=== PATIENT | female | born 1990 | race Caucasian/White ===

== ENCOUNTER 2017-09-16 09:44 | Emergency (ER) | payer OTHER ==
--- OUTSIDE RECORDS SUMMARY | 2017-09-16 09:55 | XMS REPORT ---
:1990 External Reference #:[id number] Author Organization [facility] Address [address] [place] [address]/[address] [place] [address] Phone [phone] Care Team Providers Name Role Phone Lavern Pollock MD Care Team Information Security Ambassador Unavailable Payers Type Date Identification Numbers Payment Provider Subscriber Commercial Policy Number: [id number] [facility] Vy Miller PayID: [id number] [address] [place] [address] [facility] Policy Number: [id number] [employer] Vy Miller PayID: [id number] [address] [place] [address] Problems Description No Information Family History Date Family Member(s) Problem(s) Comments General No Current Problems Father 52 Father No Current Problems Mother 50 Mother No Current Problems Children 1 First Son 6 First Son No Current Problems Siblings 2 Social History Type Date Description Comments Work Status Full-Time Employment ETOH Use Rarely consumes alcohol Smoking Patient has never smoked Recreational Drug Use Denies Drug Use Daily Caffeine Consumes on average 1 cup of regular coffee per day Allergies, Adverse Reactions, Alerts Date Description Reaction Status Severity Comments 07/02/2017 ALL Sulfa Drugs active Medications Medication Date Status Form Strength Qnty SIG Indications Ordering Provider Phentermine Active Capsules 37.5mg 30caps 1 by mouth E66.09 Phill, HCL 018 every in Ahmad M., the M.D. morning Amoxicillin Hx Tablets 500mg 40tabs 2 by mouth H54.42A4 Phill, 018 - twice a Ahmad M., day Adelso 018 Vital Signs Date Vital Result Comment 09/02/2017 BP Systolic 110 mmHg BP Diastolic 68 mmHg Height 68 inches 5'8" Weight 169.31 lb BMI (Body Mass Index) 25.7 kg/m2 Heart Rate 78 /min Respiratory Rate 18 /min 07/30/2017 BP Systolic 110 mmHg BP Diastolic 60 mmHg Height 68 inches 5'8" Weight 181.00 lb BMI (Body Mass Index) 27.5 kg/m2 Heart Rate 89 /min Respiratory Rate 18 /min 07/02/2017 BP Systolic 124 mmHg BP Diastolic 70 mmHg Height 68 inches 5'8" Weight 192.00 lb BMI (Body Mass Index) 29.2 kg/m2 Heart Rate 70 /min Respiratory Rate 16 /min Results Test Date Test Result H/L Range Note CBC Auto Diff 07/02/2017 White Blood Count 6.1 10^3/uL 3.5-10.8 Red Blood Count 4.71 10^6/uL 4.0-5.4 Hemoglobin 13.4 g/dL 12.0-16.0 Hematocrit 40 % 35-47 Mean Corpuscular Volume 84 fL 80-97 Mean Corpuscular Hemoglobin 29 pg 27-31 Mean Corpuscular HGB Conc 34 g/dL 31-36 Red Cell Distribution Width 14 % 10.5-15 Platelet Count 205 10^3/uL 150-450 Mean Platelet Volume 9 um3 7.4-10.4 Abs Neutrophils 3.3 10^3/uL 1.5-7.7 Abs Lymphocytes 2.0 10^3/uL 1.0-4.8 Abs Monocytes 0.7 10^3/uL 0-0.8 Abs Eosinophils 0.1 10^3/uL 0-0.6 Abs Basophils 0 10^3/uL 0-0.2 Abs Nucleated RBC 0 10^3/uL Granulocyte % 54.3 % 38-83 Lymphocyte % 32.9 % 25-47 Monocyte % 11.4 % High 1-9 Eosinophil % 0.9 % 0-6 Basophil % 0.5 % 0-2 Nucleated Red Blood Cells % 0.1 Comp Metabolic Panel 07/02/2017 Sodium 137 mmol/L 133-145 Potassium 4.0 mmol/L 3.5-5.0 Chloride 106 mmol/L 101-111 Co2 Carbon Dioxide 26 mmol/L 22-32 Anion Gap 5 mmol/L 2-11 Glucose 93 mg/dL 70-100 Blood Urea Nitrogen 15 mg/dL 6-24 Creatinine 0.68 mg/dL 0.51-0.95 BUN/Creatinine Ratio 22.1 High 8-20 Calcium 9.1 mg/dL 8.6-10.3 Total Protein 6.8 g/dL 6.4-8.9 Albumin 3.9 g/dL 3.2-5.2 Globulin 2.9 g/dL 2-4 Albumin/Globulin Ratio 1.3 1-3 Total Bilirubin 1.20 mg/dL High 0.2-1.0 Alkaline Phosphatase 42 U/L 34-104 Alt 23 U/L 7-52 Ast 15 U/L 13-39 Egfr Non- 106.3 >60 Egfr 136.7 >60 1 Laboratory test finding 07/02/2017 TSH (Thyroid Stim Horm) 1.64 mcIU/mL 0.34-5.60 2 1 Because ethnic data is not always readily available, this report includes an eGFR for both -Americans and non- Americans. The National Kidney Disease Education Program (NKDEP) does not endorse the use of the MDRD equation for patients that are not between the ages of 18 and 70, are , have extremes of body size, muscle mass, or nutritional status, or are non- or non-. According to the National Kidney Foundation, irrespective of diagnosis, the stage of the disease is based on the level of kidney function: Stage Description GFR(mL/min/1.73 m(2)) 1 Kidney damage with normal or decreased GFR 90 2 Kidney damage with mild decrease in GFR 60-89 3 Moderate decrease in GFR 30-59 4 Severe decrease in GFR 15-29 5 Kidney failure <15 (or dialysis) 2 [id number] Procedures Date CPT Code Description Status 07/02/2017 55509 Visual Screening Test Completed 07/02/2017 56452 Spirometry Completed 07/02/2017 33049 Tympanometry Completed 07/02/2017 92738 Audiometry, Bekesy, Screening Completed Encounters Type Date Location Provider CPT E/M Dx Office Visit 07/30/2017 10:15a [place] [facility] La[facility] Pollock M.D. 31114 H54.42A4 L20.9 J30.9 E66.09 Z30.49 J20.9 J01.40 H66.93 R06.02 R05 R09.81 Office Visit 07/02/2017 9:45a [place] [facility] Lavern Pollock M.D. 58830 Z00.01 H54.42A4 L20.9 J30.9 E66.09 J20.9 J01.40 H66.93 R06.02 R05 R09.81 Z68.29 Z30.49 Plan of Care 09/02/2017 - Lavern Pollock M.D.H54.42A4 Blindness left eye category 4, normal vision right eyeComments:OBSERVEF/U WITH [id number] Atopic dermatitis, unspecifiedComments:SKIN CARE INSTRUCTIONS LOTION OR BABY OIL 2-3 APPLICATION PER DAYUSE MOISTURIZING SOAPAVOID PROLONGED WATER EXPOSUREAVOID USING HOT WATER IN [id number] Allergic rhinitis, unspecifiedComments:INCREASE PO FLUID USE ANTIHISTAMINE PRN SECOND HAND SMOKING [id number] Other obesity due to excess caloriesComments:WT LOSS COUNCELLINGEXERCISEDIET COUNCILLING DUR CHECKEDFollow up:1 [id number] Encounter for surveillance of other contraceptivesComments: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
[2017-09-16 10:01] VITALS: BP 116/76
--- NOTE | 2017-09-16 11:29 | UC ---
Complaint Female HPI - HPI Summary HPI Summary: 26 y/o female with h/o IUD placed 1 year ago. Patient states for past 6 months has had increased menses lasting up to 2 weeks, increased cramping with periods , exercises. Denies fever, chills, N/V, abominal pain at rest. + sexually active - History Of Current Complaint Chief Complaint: UCGU Stated Complaint: PERSONAL Time Seen by Provider: 09/16/17 11:08 Hx Obtained From: Patient Hx Last Menstrual Period: 09/11/17 ?: No - IUD in place Onset/Duration: Gradual Onset, Lasting Weeks, Still Present Timing: Intermittent - worse with exercises, menses Severity Initially: Moderate Severity Currently: Moderate Pain Intensity: 8 Pain Scale Used: 0-10 Numeric Character: Sharp, Cramping, Colicy Aggravating Factor(s): Movement Alleviating Factor(s): Position Associated Signs And Symptoms: Positive: Vaginal Bleeding/Discharge - Allergies/Home Medications Allergies/Adverse Reactions: Allergies Allergy/AdvReac Type Severity Reaction Status Date / Time Sulfa (Sulfonamide Allergy Hives Verified 09/16/17 09:58 Antibiotics) Home Medications: Home Medications Phentermine HCl 37.5 mg PO DAILY 09/16/17 [History Confirmed 09/16/17] PMH/Surg Hx/FS Hx/Imm Hx Previously Healthy: Yes - Surgical History Surgical History: Yes Surgery Procedure, Year, and Place: cataract L eye - Family History Known Family History: Positive: None - Social History Alcohol Use: Rare Substance Use Type: None Smoking Status (MU): Never Smoked Tobacco Have You Smoked in the Last Year: No Review of Systems Cardiovascular: Negative Gastrointestinal: Negative Genitourinary: Abnormal Bleeding - heavy menses, lastin ~ 2 weeks Neurological: Negative Psychological: Negative Is Patient Immunocompromised?: No All Other Systems Reviewed And Are Negative: Yes Physical Exam Triage Information Reviewed: Yes Appearance: Well-Appearing, No Pain Distress, Well-Nourished Vital Signs: Initial Vital Signs Temp 98 F 09/16/17 09:59 Pulse 105 09/16/17 09:59 Resp 20 09/16/17 09:59 BP 116/76 09/16/17 09:59 Pulse Ox 100 09/16/17 09:59 Neurological Exam: Normal Psychological Exam: Normal Skin Exam: Normal Complaint Female Dx - Course Course Of Treatment: Unable to removed IUD at urgent care, [facility], appt made for her for Thurs, work note given. - Differential Dx/Diagnosis Differential Diagnosis/HQI/PQRI: Ovarian Cyst, , Ureteral Stone, Urinary Tract Infection Provider Diagnoses: dysmenorrhea Discharge - Sign-Out/Discharge Documenting (check all that apply): Discharge - Discharge Plan Condition: Good Disposition: HOME Forms: *Work Release Referrals: Lavern Pollock MD [Primary Care Provider] - Additional Instructions[facility] @ 2:30 [facility] IUD - Return with increased pain, fever > 101, cramping at rest - Billing Disposition and Condition Condition: GOOD Disposition: HOME
== END 2017-09-16 11:38 | disposition home or self-care (01) ==
LOC: UCEAST 09:44
DX: N94.6 Dysmenorrhea, unspecified (principal); Z97.5 Presence of (intrauterine) contraceptive device; Z88.2 Allergy status to sulfonamides
CPT/HCPCS: 99211; G0463

== ENCOUNTER 2021-07-14 06:07 | Inpatient (IN) ==
[2021-07-14 07:07] LABS: Urine Benzodiazepine Screen None Detected (None Detect); Urine Cannabinoids Screen None Detected (None Detect); Urine Opiates Screen None Detected (None Detect)
[2021-07-14] MEDS ORDERED: Buffered Lidocaine 1% SYRIN 1 ml INTRADERM ONE (07:14)
[2021-07-14] MEDS ORDERED: Lactated Ringers 1000 ml BAG 1,000 ML IV ONE ×2 (07:14→08:52)
[2021-07-14] MEDS ORDERED: OBEPIDURAL 250 ML EPIDURAL ONE (07:35)
[2021-07-14 07:37] LABS: ABS Monocytes 0.9 10^3/ul (0-0.8); ABS Neutrophils 10.3 10^3/ul (1.5-7.7); Eosinophil % 0.3 %; Hematocrit 33 % (35-47); Hemoglobin 11.2 g/dL (12.0-16.0); Lymphocyte % 15.1 %; Mean Corpuscular HGB Conc 34 g/dL (31-36); Mean Corpuscular Hemoglobin 26 pg (27-31); Mean Corpuscular Volume 77 fL (80-97); Mean Platelet Volume 8.1 fL (7.4-10.4); Platelet Count 235 10^3/uL (150-450); Red Blood Count 4.34 10^6 /uL (3.70-4.87); Red Cell Distribution Width 15 % (10-15); White Blood Count 13.2 10^3/uL (3.5-10.8)
[2021-07-14] MEDS ORDERED: Lactated Ringers 1000 ml BAG 1,000 ML IV SCH ×3 (08:00→12:00)
[2021-07-14] MEDS ORDERED: Sodium Citrate/Citric Acid LIQ 15 ML UDC PO PRN (08:52)
[2021-07-14] MEDS ORDERED: EPHEDrine (Pressors) 50 MG/ML VIAL IV PUSH PRN ×2 (08:52)
[2021-07-14] MEDS ORDERED: Phenylephrine 40 mcg/mL 10mL (400mcg) SYRINGE IV PUSH PRN ×2 (08:52)
[2021-07-14] MEDS ORDERED: OBEPIDURAL 250 ML EPIDURAL SCH (09:00)
[2021-07-14 09:09] LABS: Urine Appearance Clear; Urine Bilirubin Negative (Negative); Urine Blood 1+ (Negative); Urine Color Yellow; Urine Glucose Negative (Negative); Urine Ketones Negative (Negative); Urine Nitrite Negative (Negative); Urine Protein Negative (Negative); Urine Specific Gravity 1.017 (1.002-1.030); Urine Urobilinogen Negative (Negative)
[2021-07-14 09:32] LABS: Urine Bacteria Absent (Absent); Urine Red Blood Cell Trace(0-2/hpf) (Absent); Urine White Blood Cell Absent (Absent)
[2021-07-14] MEDS ORDERED: ceFOXitin 2 GM IVPREMIX 2 GM/50 ML BAG ONE (10:40)
[2021-07-14] MEDS ORDERED: Lidocaine 2% w/ EPI 1:200,000 MPF 20 ML SDV VIAL ONE ×2 (10:44→11:22)
[2021-07-14] MEDS ORDERED: fentaNYL 100 mcg/2 ml 50 MCG/ML VIAL ONE (10:44)
[2021-07-14] MEDS ORDERED: Succinylcholine 200 mg VIAL 20 mg/ml 10 ml VIAL (200 mg) ONE (11:17)
[2021-07-14] MEDS ORDERED: Oxytocin 10 UNITS/ML 1 ML VIAL ONE (11:17)
[2021-07-14] MEDS ORDERED: Propofol 10 MG/ML 20 ML BTL ONE (11:17)
[2021-07-14] MEDS ORDERED: EPHEDrine (Pressors) 50 MG/ML VIAL ONE (11:17)
[2021-07-14] MEDS ORDERED: Dexamethasone IV 4 MG/ML VIAL 1 ml VIAL ONE (11:17)
[2021-07-14] MEDS ORDERED: Morphine PF AMP (0.5MG/ML) 5 MG/10 ML AMP ONE (11:18)
[2021-07-14] MEDS ORDERED: Naloxone 4 mg VIAL (10 ml) 2 MG in NS 0.9% 250 ml 250 ML IV PRN (11:29)
[2021-07-14] MEDS ORDERED: DiMENhydriNATE IV 50 mg/ml 1 ml VIAL IV PUSH PRN (11:29)
[2021-07-14] MEDS ORDERED: Metoclopramide 5 MG/ML VIAL (10 mg) IV PRN (11:29)
[2021-07-14] MEDS ORDERED: Naloxone 0.4 mg VIAL 0.4 mg/ml 1 ml VIAL IV PRN (11:29)
[2021-07-14] MEDS ORDERED: Ondansetron 4 mg VIAL 2 MG/ML 2 ml VIAL IV PRN (11:29)
[2021-07-14] MEDS ORDERED: Witch Hazel PAD JAR TOPICAL PRN (11:42)
[2021-07-14] MEDS ORDERED: Dibucaine 1% OINT 28.35 GM TUBE PR PRN (11:42)
[2021-07-14] MEDS ORDERED: Glycerin ADULT 2.4 gm SUPP PR PRN (11:42)
[2021-07-14] MEDS ORDERED: Oxytocin in LR 20 UNITS/1,000 ML BAG IVPB SCH (12:00)
[2021-07-15 09:23] LABS: ABS Lymphocytes 2.2 10^3/ul (1.0-4.8); ABS Neutrophils 11.2 10^3/ul (1.5-7.7); Eosinophil % 0.3 %; Hematocrit 26 % (35-47); Hemoglobin 8.7 g/dL (12.0-16.0); Lymphocyte % 15.3 %; Mean Corpuscular HGB Conc 34 g/dL (31-36); Mean Corpuscular Hemoglobin 26 pg (27-31); Mean Corpuscular Volume 77 fL (80-97); Mean Platelet Volume 8.2 fL (7.4-10.4); Platelet Count 214 10^3/uL (150-450); Red Blood Count 3.36 10^6 /uL (3.70-4.87); Red Cell Distribution Width 14 % (10-15); White Blood Count 14.5 10^3/uL (3.5-10.8)
[2021-07-16 08:08] VITALS: BP 117/65
== END 2021-07-16 13:40 | disposition home or self-care (01) | DRG 540 ==
LOC: MCHOBOUT 06:07 → MCHOB 06:34
PROVIDERS: ADMIT Midwife; ATTEND Midwife